=== PATIENT | female | born 1995 | race Caucasian/White ===

== ENCOUNTER → 2016-11-13 | Outpatient (REF) | LOC: WSOH 13:51 | DX: Z02.89 Encounter for other administrative examinations (principal) ==

== ENCOUNTER 2018-11-30 19:49 | Emergency (ER) | payer BC ==
[~2018-11-30] VITALS: Ht 162.6 cm; Wt 65.9 kg
[2018-11-30 19:53] VITALS: TEMP 99.9
[2018-11-30 22:02] VITALS: BP 130/74; PULSE 84
== END 2018-11-30 22:01 | disposition home or self-care (01) ==
LOC: COL.ER 19:49
DX: G43.909 Migraine, unspecified, not intractable, without status migrainosus (principal); H53.9 Unspecified visual disturbance